=== PATIENT | male | born 1985 | race African-American/Black ===

== ENCOUNTER 2022-01-27 07:26 | Emergency (ER) | payer OTHER ==
[~2022-01-27] VITALS: Ht 157.5 cm; Wt 59.5 kg
[2022-01-27] MEDS ORDERED: SODIUM CHLORIDE 0.9% 1000ML 1,000 ML IV STA (08:07)
[2022-01-27] MEDS ORDERED: FAMOTIDINE 20 MG/2 ML VIAL IV ONE ×2 (08:15→08:41)
[2022-01-27] MEDS ORDERED: ONDANSETRON HCL INJ 2MG/ML 2ML 2 MG/ML VIAL IV ONE (08:15)
[2022-01-27] MEDS ORDERED: KETOROLAC TROMETHAMINE 30 MG/ML VIAL ONE (08:41)
[2022-01-27] MEDS ORDERED: ONDANSETRON HCL INJ 2MG/ML 2ML 2 MG/ML VIAL ONE (08:41)
[2022-01-27] MEDS ORDERED: SODIUM CHLORIDE 0.9% 1000ML 1,000 ML ONE (08:41)
[2022-01-27] MEDS ORDERED: KETOROLAC TROMETHAMINE 30 MG/ML VIAL IV STA (08:44)
[2022-01-27] MEDS ORDERED: ONDANSETRON ODT4 MG PO (08:55)
[2022-01-27] MEDS ORDERED: DICYCLOMINE HCL20 MG PO (08:55)
[2022-01-27] MEDS ORDERED: OMEPRAZOLE40 MG PO (08:55)
[2022-01-27] MEDS ORDERED: IOPAMIDOL 370 MG/ML 100 ML INFUS..BTL INJ ONE (10:18)
== END 2022-01-27 10:40 | disposition home or self-care (01) ==
LOC: FSED 08:15
DX: R10.33 Periumbilical pain (principal); K29.70 Gastritis, unspecified, without bleeding; R11.0 Nausea; F17.210 Nicotine dependence, cigarettes, uncomplicated
CPT/HCPCS: 74177; 80048; 80076; 81003; 85025; 96374; 96375; 99284; J1885; J2405; J7030; Q9967

== ENCOUNTER 2022-12-05 10:39 | Emergency (ER) | payer OTHER ==
[~2022-12-05] VITALS: Ht 157.5 cm; Wt 59.6 kg
[~2022-12-05 10:39] MED LIST: DICYCLOMINE HCL20 MG PO; OMEPRAZOLE40 MG PO; ONDANSETRON ODT4 MG PO
[2022-12-05] MEDS ORDERED: SODIUM CHLORIDE 0.9% 1000ML 1,000 ML ONE (11:38)
[2022-12-05] MEDS ORDERED: KETOROLAC TROMETHAMINE 30 MG/ML VIAL ONE (11:38)
[2022-12-05] MEDS ORDERED: ONDANSETRON HCL INJ 2MG/ML 2ML 2 MG/ML VIAL ONE (11:38)
[2022-12-05] MEDS ORDERED: SODIUM CHLORIDE 0.9% 1000ML 1,000 ML IV ONE (11:45)
[2022-12-05] MEDS ORDERED: ONDANSETRON HCL INJ 2MG/ML 2ML 2 MG/ML VIAL IV STA (11:45)
[2022-12-05] MEDS ORDERED: KETOROLAC TROMETHAMINE 30 MG/ML VIAL IV ONE (11:45)
[2022-12-05] MEDS ORDERED: IOPAMIDOL 370 MG/ML 100 ML INFUS..BTL INJ ONE (13:01)
[2022-12-05 14:42] VITALS: O2SAT 99
== END 2022-12-05 14:42 | disposition home or self-care (01) ==
LOC: FSED 10:59
DX: R10.30 Lower abdominal pain, unspecified (principal); N32.89 Other specified disorders of bladder; R11.0 Nausea; F17.210 Nicotine dependence, cigarettes, uncomplicated
CPT/HCPCS: 74177; 80076; 81003; 85025; 96374; 96375; 99284; J1885; J2405; J7030; Q9967